=== PATIENT | female | born 1930 | race African-American/Black ===

== ENCOUNTER 2019-04-18 10:42 | Inpatient (IN) | payer MEDICARE, MEDICAID ==
[~2019-04-18] VITALS: Ht 162.6 cm; Wt 103.9 kg
[~2019-04-18 10:42] MED LIST: AMLODIPINE; COZAAR; CRESTOR; IBUPROFEN
[2019-04-18 11:47] LABS: BASOPHILS % 0.6 % (0.0-2.0); EOSINOPHILS % 0.9 % (0.0-5.0); HEMATOCRIT. 38.9 % (36.0-48.0); HEMOGLOBIN. 12.4 g/dL (12.0-16.0); LYMPHOCYTES % 11.9 % (20.0-50.0); MEAN CORPUSCULAR HEMOGLOBIN 25.9 pg (28.0-32.0); MEAN CORPUSCULAR VOLUME 81.1 fL (81.0-99.0); MEAN PLATELET VOLUME 9.3 fl (7.4-10.4); MONOCYTES % 5.4 % (2.0-8.0); NEUTROPHILS % 81.2 % (40.0-76.0); PLATELET 177 x1000/uL (130-400); RED CELL DISTRIBUTION WIDTH 17.8 % (11.6-14.6)
[2019-04-18 11:50] LABS: CHLORIDE 111 mEq/L (98-107)
[2019-04-18 11:51] LABS: INR 1.1; PARTIAL THROMBOPLASTIN TIME 26.5 sec (23.4-31.0)
[2019-04-18] MEDS ORDERED: FUROSEMIDE 20MG/2ML VIAL IVP ONE (12:45)
[2019-04-18] MEDS ORDERED: ASPIRIN 81MG TABLET PO ONE (12:45)
[2019-04-18] MEDS ORDERED: ENOXAPARIN 80MG/0.8ML SYR SUBCUT ONE (13:00)
[2019-04-18] MEDS: SODIUM CHLORIDE 0.45% 1,000 ML IV SCH (16:06)
[2019-04-18 21:37] VITALS: BP 152/96
[2019-04-18 21:45] VITALS: BP 152/96
[2019-04-18] MEDS: ATORVASTATIN CALCIUM 10MG TABLET PO SCH (23:33)
[2019-04-19] VITALS: BP 145/91
[2019-04-19 04:00] VITALS: BP 177/84
[2019-04-19] MEDS: SODIUM CHLORIDE 0.45% 1,000 ML IV SCH ×2 (04:30→16:45)
[2019-04-19 07:04] LABS: BASOPHILS % 0.8 % (0.0-2.0); EOSINOPHILS % 4.1 % (0.0-5.0); HEMATOCRIT. 35.5 % (36.0-48.0); HEMOGLOBIN. 11.7 g/dL (12.0-16.0); LYMPHOCYTES % 23.6 % (20.0-50.0); MEAN CORPUSCULAR HEMOGLOBIN 26.8 pg (28.0-32.0); MEAN CORPUSCULAR VOLUME 81.3 fL (81.0-99.0); MEAN PLATELET VOLUME 9.7 fl (7.4-10.4); MONOCYTES % 10.5 % (2.0-8.0); PLATELET 168 x1000/uL (130-400); RED BLOOD CELL COUNT 4.37 mill/uL (4.2-5.4); RED CELL DISTRIBUTION WIDTH 17.7 % (11.6-14.6)
[2019-04-19] MEDS ORDERED: ATENOLOL 50 MG TABLET PO NR (09:30)
[2019-04-19] MEDS ORDERED: LOSARTAN POTASSIUM 100 MG TABLET PO SCH (09:30)
[2019-04-19] MEDS: ASPIRIN 81MG EC TABLET PO SCH (10:08)
[2019-04-19] MEDS: LOSARTAN POTASSIUM 50 MG TABLET PO SCH ×2 (12:30→16:44)
[2019-04-19] MEDS: ATENOLOL 50 MG TABLET PO SCH ×2 (12:42→21:08)
[2019-04-19 16:00] VITALS: BP 136/81
[2019-04-19 20:00] VITALS: BP 131/86
[2019-04-19] MEDS ORDERED: LACTULOSE 20G/30ML UDC PO PRN (21:00)
[2019-04-19] MEDS: ATORVASTATIN CALCIUM 10MG TABLET PO SCH (21:08)
[2019-04-19] MEDS ORDERED: ACETAMINOPHEN 325MG TABLET PO PRN (21:45)
[2019-04-20] VITALS: BP 146/96
[2019-04-20 04:00] VITALS: BP 135/70
[2019-04-20] MEDS: SODIUM CHLORIDE 0.45% 1,000 ML IV SCH (05:14)
[2019-04-20 07:08] LABS: EOSINOPHILS % 3.1 % (0.0-5.0); HEMATOCRIT. 34.2 % (36.0-48.0); HEMOGLOBIN. 10.9 g/dL (12.0-16.0); LYMPHOCYTES % 23.5 % (20.0-50.0); MEAN CORPUSCULAR HEMOGLOBIN 25.8 pg (28.0-32.0); MEAN PLATELET VOLUME 9.5 fl (7.4-10.4); NEUTROPHILS % 65.4 % (40.0-76.0); PLATELET 184 x1000/uL (130-400); RED BLOOD CELL COUNT 4.21 mill/uL (4.2-5.4); RED CELL DISTRIBUTION WIDTH 17.2 % (11.6-14.6)
[2019-04-20] MEDS: LOSARTAN POTASSIUM 50 MG TABLET PO SCH (09:00)
[2019-04-20] MEDS: ATENOLOL 50 MG TABLET PO SCH (09:00)
[2019-04-20] MEDS: ASPIRIN 81MG EC TABLET PO SCH (09:37)
[2019-04-20] MEDS: DOCUSATE SODIUM 250MG CAPSULE PO SCH (09:38)
[2019-04-20 12:00] VITALS: BP 106/74
[2019-04-20 16:00] VITALS: BP 115/90
[2019-04-20] MEDS: LOSARTAN POTASSIUM 25 MG TABLET PO SCH (16:45)
[2019-04-20 20:00] VITALS: BP 129/84
[2019-04-20] MEDS: ATENOLOL 25MG TABLET PO SCH (21:54)
[2019-04-20] MEDS: ATORVASTATIN CALCIUM 10MG TABLET PO SCH (21:54)
[2019-04-21] VITALS: BP 133/84
[2019-04-21 04:00] VITALS: BP 110/71
[2019-04-21 06:54] LABS: BASOPHILS % 0.5 % (0.0-2.0); EOSINOPHILS % 5.1 % (0.0-5.0); HEMATOCRIT. 34.3 % (36.0-48.0); HEMOGLOBIN. 10.9 g/dL (12.0-16.0); LYMPHOCYTES % 25.5 % (20.0-50.0); MEAN CORPUSCULAR HEMOGLOBIN 25.8 pg (28.0-32.0); MEAN CORPUSCULAR VOLUME 81.1 fL (81.0-99.0); MEAN PLATELET VOLUME 9.5 fl (7.4-10.4); MONOCYTES % 8.4 % (2.0-8.0); NEUTROPHILS % 60.5 % (40.0-76.0); PLATELET 186 x1000/uL (130-400); RED BLOOD CELL COUNT 4.23 mill/uL (4.2-5.4); RED CELL DISTRIBUTION WIDTH 17.2 % (11.6-14.6)
[2019-04-21 08:00] VITALS: BP 140/109
[2019-04-21] MEDS: LOSARTAN POTASSIUM 25 MG TABLET PO SCH (08:52)
[2019-04-21] MEDS: DOCUSATE SODIUM 250MG CAPSULE PO SCH (08:52)
[2019-04-21] MEDS: ASPIRIN 81MG EC TABLET PO SCH (09:00)
[2019-04-21] MEDS: ATENOLOL 25MG TABLET PO SCH (09:00)
[2019-04-21 12:00] VITALS: BP 104/41
[2019-04-21] MEDS ORDERED: ENOXAPARIN 100MG/ML SYR SUBCUT SCH ×3 (13:00→21:00)
[2019-04-21 14:36] VITALS: BP 104/41
== END 2019-04-21 15:50 | disposition home health service (06) | DRG 190 ==
LOC: ER 10:42 → 6WST 12:18 → EDBEDREQ 12:22 → EDBEDREQTM 12:23 → ENRESERV 20:16
PROVIDERS: ADMIT Internal Medicine; ATTEND Internal Medicine
DX: I21.4 Non-ST elevation (NSTEMI) myocardial infarction (principal); N17.0 Acute kidney failure with tubular necrosis; I50.23 Acute on chronic systolic (congestive) heart failure; I82.412 Acute embolism and thrombosis of left femoral vein; I95.9 Hypotension, unspecified; I13.0 Hypertensive heart and chronic kidney disease with heart failure and stage 1 through stage 4 chronic kidney disease, or unspecified chronic kidney disease; E86.0 Dehydration; E11.22 Type 2 diabetes mellitus with diabetic chronic kidney disease; G30.9 Alzheimer's disease, unspecified; F02.80 Dementia in other diseases classified elsewhere, unspecified severity, without behavioral disturbance, psychotic disturbance, mood disturbance, and anxiety; E78.5 Hyperlipidemia, unspecified; K21.9 Gastro-esophageal reflux disease without esophagitis; E66.9 Obesity, unspecified; F32.9 Major depressive disorder, single episode, unspecified; M51.36 Other intervertebral disc degeneration, lumbar region; I25.10 Atherosclerotic heart disease of native coronary artery without angina pectoris; N18.9 Chronic kidney disease, unspecified; R29.6 Repeated falls; G89.29 Other chronic pain; M17.0 Bilateral primary osteoarthritis of knee; M19.019 Primary osteoarthritis, unspecified shoulder; Z98.51 Tubal ligation status; I25.2 Old myocardial infarction; Z86.73 Personal history of transient ischemic attack (TIA), and cerebral infarction without residual deficits; Z79.82 Long term (current) use of aspirin; Z79.899 Other long term (current) drug therapy; Z91.81 History of falling; Z90.49 Acquired absence of other specified parts of digestive tract; Z68.39 Body mass index [BMI] 39.0-39.9, adult
CPT/HCPCS: 36415; 70551; 71045; 72100; 73560; 74018; 76770; 80048; 83036; 83880; 84484; 93005; 93306; 93880; 93970; 97162; 99291; J1650; J1940

== ENCOUNTER 2019-04-21 19:05 | Inpatient (IN) | payer MEDICARE, MEDICAID ==
[~2019-04-21] VITALS: Ht 165.1 cm; Wt 103.4 kg
[2019-04-21] MEDS ORDERED: PIPERACILLIN/TAZ 3.375G PREMIX 50 ML IV ONE (19:15)
[2019-04-21] MEDS ORDERED: SODIUM CHLORIDE 0.9% 1000ML BAG (SEPSIS BOLUS) IV ONE (19:15)
[2019-04-21] MEDS ORDERED: VANCOMYCIN 1 G PREMIX 200 ML IV ONE (19:15)
[2019-04-21] MEDS ORDERED: ASPIRIN 81MG TABLET PO ONE (20:00)
[2019-04-21] MEDS ORDERED: NITROGLYCERIN OINT 1GM/INCH UDPKT TD ONE (20:00)
[2019-04-21] MEDS ORDERED: FUROSEMIDE 40MG/4ML VIAL IV ONE (20:00)
[2019-04-21] MEDS ORDERED: PIPERACILLIN/TAZ 3.375G PREMIX 50 ML IV SCH (20:19)
[2019-04-21 20:50] LABS: BG BASE EXCESS -3.4 mmol/L (-2.0-2.0); BG BILEVEL POS AIRWAY PRESSURE 15/5; BG CARBOXYHEMOGLOBIN 0.3 % (0.5-1.5); BG DEOXYHEMOGLOBIN 1.2 % (0.0-5.0); BG FRACTION INSPIRED OXYGEN 50; BG HCO3 ACT 20.9 mmol/L (22.0-26.0); BG METHEMOGLOBIN 0.2 % (0.0-1.5); BG OXYGEN SATURATION 98.8 % (92.0-98.5); BG OXYHEMOGLOBIN 98.3 % (94.0-97.0); BG PCO2 35.3 mmHg (35.0-45.0); BG PO2 153.2 mmHg (75.0-100.0); BG SAMPLE SITE RIGHT RADIAL; BG TOTAL HEMOGLOBIN 12.6 g/dL (12.0-18.0); BG VENT MODE MASK - BIPAP
[2019-04-21] MEDS ORDERED: IPRATROPIUM/ALBUTEROL 0.5-3(2.5)MG/3ML NEB NEB PRN (22:30)
[2019-04-21] MEDS ORDERED: DIPHENHYDRAMINE 50MG/ML VIAL IV PRN (22:30)
[2019-04-21] MEDS ORDERED: ONDANSETRON HCL 4MG/2ML INJ IV PRN (22:30)
[2019-04-21] MEDS ORDERED: NA PHOS,M-B/NA PHOS,DI-BA ENEMA 118ML PR PRN (22:30)
[2019-04-21] MEDS ORDERED: ACETAMINOPHEN 325MG TABLET PO PRN (22:30)
[2019-04-21] MEDS ORDERED: CLONIDINE 0.1MG TABLET PO PRN (22:30)
[2019-04-21 23:28] LABS: BASOPHILS % 0.5 % (0.0-2.0); EOSINOPHILS % 0.1 % (0.0-5.0); HEMATOCRIT. 36.5 % (36.0-48.0); HEMOGLOBIN. 11.6 g/dL (12.0-16.0); LYMPHOCYTES % 7.7 % (20.0-50.0); MEAN CORPUSCULAR HEMOGLOBIN 26.2 pg (28.0-32.0); MEAN CORPUSCULAR VOLUME 82.4 fL (81.0-99.0); MEAN PLATELET VOLUME 9.1 fl (7.4-10.4); MONOCYTES % 4.7 % (2.0-8.0); PLATELET 177 x1000/uL (130-400); RED BLOOD CELL COUNT 4.43 mill/uL (4.2-5.4); RED CELL DISTRIBUTION WIDTH 17.2 % (11.6-14.6)
[2019-04-21] MEDS ORDERED: HEPARIN 5000 UNITS/ML VIAL IV ONE (23:30)
[2019-04-21] MEDS ORDERED: HEPARIN 25,000 UNITS PREMIX 500 ML IV SCH (23:30)
[2019-04-21 23:33] LABS: CHLORIDE 109 mEq/L (98-107)
[2019-04-21 23:44] LABS: D-DIMER 18.32 mg/L FEU (<0.50); INR 1.1; PARTIAL THROMBOPLASTIN TIME 30.1 sec (23.4-31.0); PROTHROMBIN TIME 11.4 sec (9.6-11.0)
[2019-04-22] VITALS (12 sets, daily range): BP systolic 81–159; BP diastolic 57–102
[2019-04-22] MEDS ORDERED: HEPARIN 25,000 UNITS PREMIX 500 ML IV SCH ×3 (01:00→04:15)
[2019-04-22] MEDS ORDERED: HEPARIN 80 UNITS/KG BOLUS IV SCH (01:00)
[2019-04-22] MEDS ORDERED: HEPARIN BOLUS PRN aPTT <36 IV ×2 (01:00→18:52)
[2019-04-22] MEDS ORDERED: HEPARIN BOLUS PRN aPTT 37-44 IV ×2 (01:00→18:53)
[2019-04-22] MEDS ORDERED: METHYLPREDNISOLONE SOD SUCC 125 MG/2 ML VIAL IV SCH (04:00)
[2019-04-22] MEDS: SODIUM CHLORIDE 0.9% 1,000 ML IV SCH ×2 (05:18→14:36)
[2019-04-22 07:20] LABS: BASOPHILS % 0.6 % (0.0-2.0); EOSINOPHILS % 0.5 % (0.0-5.0); HEMATOCRIT. 34.8 % (36.0-48.0); HEMOGLOBIN. 11.1 g/dL (12.0-16.0); LYMPHOCYTES % 12.2 % (20.0-50.0); MEAN CORPUSCULAR HEMOGLOBIN 26.2 pg (28.0-32.0); MEAN CORPUSCULAR VOLUME 82.4 fL (81.0-99.0); MEAN PLATELET VOLUME 8.9 fl (7.4-10.4); MONOCYTES % 4.9 % (2.0-8.0); NEUTROPHILS % 81.8 % (40.0-76.0); PLATELET 171 x1000/uL (130-400); RED BLOOD CELL COUNT 4.22 mill/uL (4.2-5.4); RED CELL DISTRIBUTION WIDTH 17.7 % (11.6-14.6)
[2019-04-22 07:28] LABS: CHLORIDE 107 mEq/L (98-107)
[2019-04-22] MEDS ORDERED: DEXTROSE 50% WATER 50ML SYRINGE IV PRN (07:45)
[2019-04-22] MEDS: BLOOD SUGAR DIAGNOSTIC STRIP TEST SCH ×4 (08:00→21:00)
[2019-04-22] MEDS ORDERED: FUROSEMIDE 40MG/4ML VIAL IV SCH (09:00)
[2019-04-22 09:28] LABS: BG BASE EXCESS -5.5 mmol/L (-2.0-2.0); BG BILEVEL POS AIRWAY PRESSURE 15/5; BG CARBOXYHEMOGLOBIN 0.3 % (0.5-1.5); BG DEOXYHEMOGLOBIN 6.1 % (0.0-5.0); BG FRACTION INSPIRED OXYGEN 35; BG HCO3 ACT 18.4 mmol/L (22.0-26.0); BG METHEMOGLOBIN 0.3 % (0.0-1.5); BG OXYGEN SATURATION 93.9 % (92.0-98.5); BG OXYHEMOGLOBIN 93.3 % (94.0-97.0); BG PCO2 31.1 mmHg (35.0-45.0); BG PH 7.391 (7.350-7.450); BG SAMPLE SITE RIGHT RADIAL; BG TOTAL HEMOGLOBIN 12.2 g/dL (12.0-18.0); BG VENT MODE MASK - BIPAP; BG VENT RATE 18 set
[2019-04-22] MEDS: INSULIN LISPRO 100 UNITS/ML SUBCUT SCH ×4 (10:03→21:00)
[2019-04-22] MEDS ORDERED: CEFTRIAXONE 1 G PREMIX 50 ML IV SCH (14:00)
[2019-04-22] MEDS ORDERED: ALBUTEROL (0.083%) 2.5MG/3ML NEB HHN SCH (16:00)
[2019-04-23] MEDS ORDERED: MAGNESIUM SULFATE 4G IN WATER 100ML PREMIX IV ONE (00:33)
[2019-04-23] MEDS ORDERED: LIDOCAINE HCL 2% 5ML SYRINGE IV ONE (00:33)
[2019-04-23] MEDS ORDERED: SODIUM BICARBONATE 8.4% MEQ/ML 50ML VIAL IV ONE (00:33)
[2019-04-23] MEDS ORDERED: CALCIUM CHLORIDE 1GM/10ML SYR IV ONE (00:33)
[2019-04-23] MEDS ORDERED: AMIODARONE HCL 50MG/ML 3ML VIAL IV ONE (00:33)
[2019-04-23] MEDS ORDERED: EPINEPHRINE 0.1MG/ML (1:10,000) 10ML SYR ONE (00:33)
[2019-04-23] MEDS ORDERED: SODIUM CHLORIDE 0.9% 10ML VIAL ONE (00:33)
== END 2019-04-23 00:49 | disposition expired | DRG 175 ==
LOC: ER 19:05 → 3WST 22:04 → EDBEDREQ 22:06 → EDBEDREQTM 22:06 → ENRESERV 22:43 → CVICU 04-23 00:34
PROVIDERS: ADMIT Internal Medicine Nephrology; ATTEND Internal Medicine Nephrology
DX: I26.99 Other pulmonary embolism without acute cor pulmonale (principal); I50.33 Acute on chronic diastolic (congestive) heart failure; I13.0 Hypertensive heart and chronic kidney disease with heart failure and stage 1 through stage 4 chronic kidney disease, or unspecified chronic kidney disease; D68.59 Other primary thrombophilia; I82.402 Acute embolism and thrombosis of unspecified deep veins of left lower extremity; N17.9 Acute kidney failure, unspecified; N18.4 Chronic kidney disease, stage 4 (severe); E11.22 Type 2 diabetes mellitus with diabetic chronic kidney disease; E11.65 Type 2 diabetes mellitus with hyperglycemia; F02.80 Dementia in other diseases classified elsewhere, unspecified severity, without behavioral disturbance, psychotic disturbance, mood disturbance, and anxiety; G30.9 Alzheimer's disease, unspecified; M19.90 Unspecified osteoarthritis, unspecified site; I95.9 Hypotension, unspecified; D64.9 Anemia, unspecified; J44.9 Chronic obstructive pulmonary disease, unspecified; R09.02 Hypoxemia; Z86.718 Personal history of other venous thrombosis and embolism; Z86.73 Personal history of transient ischemic attack (TIA), and cerebral infarction without residual deficits; I25.2 Old myocardial infarction; Z91.81 History of falling
CPT/HCPCS: 31500; 36415; 36600; 71045; 78582; 82375; 82805; 82962; 83605; 83880; 84145; 84484; 85379; 92950; 93005; 94002; 94640; 94660; 96365; 99291; A9558; J0282; J0696; J1644; J1815; J1940; J2543; J2930; J3370; J3475; J3490; J7030; J7611; A4315